=== PATIENT | female | born 1995 | race African-American/Black ===

== ENCOUNTER 2016-12-05 15:42 | Emergency (ER) | payer OTHER ==
[~2016-12-05] VITALS: Ht 167.6 cm; Wt 68.0 kg
[2016-12-05] MEDS ORDERED: Dexamethasone 4mg/ml vial IM ONE (16:45)
[2016-12-05] MEDS ORDERED: PREDNISONE20 MG ORAL (17:09)
[2016-12-05] MEDS ORDERED: ZITHROMAX250 MG ORAL (17:09)
[2016-12-05 17:30] VITALS: BP 126/76
[2016-12-05 17:31] VITALS: BP 123/76
--- NOTE | 2016-12-05 22:44 | Emergency Room Report ---
History of Present Illness General Chief Complaint: Sore Throat Source: Patient Present Illness HPI The patient is a 21-year-old female presenting for sore throat and cough with subjective fevers. The patient states that she had the same symptoms 1 month prior and was given a 7 day course of treatment with amoxicillin. The patient states that she completed the antibiotics and symptoms resigned in but have now returned. Pain is described as an 8/10 dull ache to the back of the throat and is worse with swallowing. No radiating pain. She denies any other symptoms including nausea, vomiting, shortness of breath, chest pain, headache, neck pain or stiffness, rash Allergies: Coded Allergies: No Known Allergies (Unverified , 12/05/16) Patient History Past Medical History: see triage record Pertinent Family History: none Last Menstrual Period: last month Now: No Reviewed Nursing Documentation: PMH: Agreed, PSxH: Agreed Nursing Documentation-PMH Past Medical History: No History, Except For Review of Systems All Other Systems: negative except mentioned in HPI Physical Exam Vital Signs Date Time Temp Pulse Resp B/P Pulse Ox O2 Delivery O2 Flow Rate FiO2 12/05/16 16:01 97.9 77 18 123/76 98 Room Air Sp02 EP Interpretation: reviewed, normal General Appearance: no apparent distress, alert, GCS 15, non-toxic Head: normocephalic, atraumatic Eyes: bilateral eye PERRL, bilateral eye normal inspection ENT: normal voice, TMs + canals normal, uvula midline, tonsillar swelling, pharyngeal erythema Neck: full range of motion, supple/symm/no masses Respiratory: chest non-tender, lungs clear, normal breath sounds, no wheezing, speaking full sentences Cardiovascular #1: regular rate, rhythm, no edema Neurologic: alert, oriented x3, responsive, motor strength/tone normal, sensory intact, speech normal Psychiatric: judgement/insight normal, memory normal, mood/affect normal, no suicidal/homicidal ideation Skin: normal color, no rash, warm/dry, well hydrated Lymphatic: adenopathy Medical Decision Making PA Attestation Dr. Manzo is my supervising physician. Patient management was discussed with my supervising physician Diagnostic Impression: Primary Impression: Pharyngitis, acute Qualified Codes: J02.9 - Acute pharyngitis, unspecified ER Course The patient is a 21-year-old female presenting for sore throat and cough with subjective fevers Differential diagnosis include but not limited to pharyngitis, sinusitis, AOM, bronchitis, PNA Physical exam: Vitals within normal limits. Afebrile. No apparent distress HEENT exam: There is bilateral tonsillar edema, erythema, and exudate. Uvula midline. Moist mucous membranes. There is bilateral cervical lymphadenopathy. Lungs are clear to auscultation bilaterally Skin is warm and dry. No rash The patient will be discharged home with a prescription for azithromycin and is given ER precautions. Patient will followup with primary care Last Vital Signs Date Time Temp Pulse Resp B/P Pulse Ox O2 Delivery O2 Flow Rate FiO2 12/05/16 17:31 97.9 18 123/76 98 Room Air 12/05/16 17:30 89 Status: improved Disposition: HOME, SELF-CARE Condition: Improved Scripts Prednisone* (PREDNISONE*) 20 Mg Tablet 40 MG ORAL DAILY, #8 TAB Prov: VALDEZ COLLINS 12/05/16 Azithromycin* (ZITHROMAX*) 250 Mg Tablet 250 MG ORAL DAILY, #6 TAB 0 Refills Take two tables once daily for 1 day, then one tablet once daily for 4 days. Prov: VALDEZ COLLINS. 12/05/16 Patient Instructions: Sore Throat Additional Instructions: I discussed my findings with the patient. All questions and concerns have been answered. Treatment and medication compliance have been addressed. I advised the patient that they need to follow up with PMD in 3-5 days. Return to ED if pain remains or worsens, cough worsens or remains, you notice blood in your sputum, you notice wheezing, you experience a fever, or if needed for any reason. Patient verbalized understanding of discharge instructions. VALDEZ COLLINS Dec 05, 2016 22:44
== END 2016-12-05 17:33 | disposition home or self-care (01) ==
LOC: EMR 16:12
DX: J02.9 Acute pharyngitis, unspecified (principal)
CPT/HCPCS: 96372; 99284; J1100

== ENCOUNTER 2017-08-30 11:08 | Emergency (ER) | payer MEDICAID, OTHER ==
[~2017-08-30] VITALS: Ht 167.6 cm; Wt 71.7 kg
[~2017-08-30 11:08] MED LIST: PREDNISONE20 MG ORAL; ZITHROMAX250 MG ORAL
[2017-08-30 11:12] VITALS: BP 106/71
[2017-08-30] MEDS ORDERED: AMOXIL250 MG ORAL (11:15)
[2017-08-30] MEDS ORDERED: NAPROXEN375 M2 ORAL (11:38)
[2017-08-30] MEDS ORDERED: TAMIFLU75 MG ORAL (11:38)
[2017-08-30] MEDS ORDERED: Naproxen 500mg tab ORAL ONE (12:00)
--- NOTE | 2017-08-30 12:05 | Diagnostic Imaging Report ---
Indication: Dyspnea Technique: XRAY Chest 1v Comparison: None Findings: Heart size and mediastinal contours are within normal limits given technique. There is no focal consolidation, pneumothorax or pleural effusion. Osseous structures demonstrate no acute abnormality. Impression: No radiographic evidence of acute cardiopulmonary disease.
[2017-08-30 12:11] VITALS: BP 106/71
--- NOTE | 2017-09-06 01:59 | Emergency Room Report ---
History of Present Illness General Chief Complaint: General Complaint Source: Patient Present Illness HPI Patient is a 22 year old female who presented after increased cough for two days. Patient reports recent illness which had resolved but recurred. She had finished a course of antibiotics. She reports a nonproductive cough. She denies chest discomfort. She states that she is not . She reports gradual onset of symptoms worse at night. She reports associated sore throat. Allergies: Coded Allergies: No Known Allergies (Unverified , 12/05/16) Patient History Past Medical History: see triage record Past Surgical History: none Last Menstrual Period: Current Now: No Reviewed Nursing Documentation: PMH: Agreed, PSxH: Agreed Review of Systems All Other Systems: negative except mentioned in HPI Physical Exam Vital Signs Date Time Temp Pulse Resp B/P (MAP) Pulse Ox O2 Delivery O2 Flow Rate FiO2 08/30/17 11:12 98.8 93 21 106/71 98 Room Air General Appearance: well appearing, no apparent distress, alert, GCS 15, non- toxic Head: normocephalic, atraumatic Eyes: bilateral eye PERRL ENT: hearing grossly normal, normal voice, uvula midline, moist mucus membranes Neck: full range of motion, supple Respiratory: no respiratory distress, speaking full sentences Cardiovascular #1: normal inspection, normal peripheral pulses, regular rate, rhythm, no edema Gastrointestinal: normal inspection Musculoskeletal: no calf tenderness Neurologic: normal inspection, alert, oriented x3, coagulating bath operator III-XII nml as tested, normal gait Psychiatric: normal inspection, mood/affect normal Skin: no rash, palpation normal Medical Decision Making Diagnostic Impression: Primary Impression: Pharyngitis, acute Additional Impression: Influenza-like illness ER Course Patient presented for cough. Differential diagnosis included but was not limited to pneumonia, bronchitis, influenza, among others. Chest xray was ordered due to persistent cough to rule out pneumonia. Patient was noted to have normal cardiac size. No infiltrate was noted. No evident effusion. Patient was given prescriptions for symptomatic treatment and probable influenza. Patient was advised to follow up with her primary care physician in 1-2 days and to return if worse. Chest X-Ray Diagnostic Results Chest X-Ray Diagnostic Results : Chest X-Ray Ordered: Yes Interpretation: no consolidation, no effusion, no acute cardiopulmonary disease Impression: No acute disease Last Vital Signs Date Time Temp Pulse Resp B/P (MAP) Pulse Ox O2 Delivery O2 Flow Rate FiO2 08/30/17 12:11 98.8 21 106/71 98 Room Air 08/30/17 11:12 93 Status: improved Disposition: HOME, SELF-CARE Condition: Stable Scripts Oseltamivir Phosphate (Tamiflu) 75 Mg Capsule 75 MG ORAL TWICE A DAY, #10 CAP Prov: Dudley Chapin 08/30/17 Naproxen* (NAPROXEN*) 375 Mg Tablet.dr 375 MG ORAL TWICE A DAY, #10 TAB Prov: Dudley Chapin 08/30/17 Referrals: [facility],REFERRING (PCP) Patient Instructions: Pharyngitis Dudley Chapin Sep 06, 2017 01:59
== END 2017-08-30 12:11 | disposition home or self-care (01) ==
LOC: EMR 12:00
DX: J02.9 Acute pharyngitis, unspecified (principal); J11.1 Influenza due to unidentified influenza virus with other respiratory manifestations
CPT/HCPCS: 71045; 81025; 99283

== ENCOUNTER 2018-06-14 10:13 | Emergency (ER) | payer MEDICAID ==
[~2018-06-14] VITALS: Ht 167.6 cm; Wt 72.6 kg
[~2018-06-14 10:13] MED LIST changes: +AMOXIL250 MG ORAL; +NAPROXEN375 M2 ORAL; +TAMIFLU75 MG ORAL
[2018-06-14 10:31] VITALS: BP 112/68
--- NOTE | 2018-06-14 10:41 | Emergency Room Report ---
History of Present Illness General Chief Complaint: Flu Like Symptoms Source: Medical Record Present Illness HPI Patient presents with a week of upper respiratory illness. Started with cough. Since yesterday the sore throat has been severe. She used her inhaler last night. The cough has not been productive. She complains of sore throat and headache rated 9/10. Sharp pain in throat, aching in head. No neck pain. Feverish, not documented. Her last period was 3 days ago and it was normal for her. No nausea vomiting diarrhea dysuria. She's had a rash on her forearm for approximately 4 months. She was seen by fur repair inspector in the creams that they gave weren't effective. It's not itching. There is some darkened areas. There is also one spot on her tummy. Allergies: Coded Allergies: No Known Allergies (Unverified , 12/05/16) Patient History Past Medical History: see triage record Social History: Denies: smoking - second hand Social History Narrative works at [employer] Last Menstrual Period: 06/07/18 Reviewed Nursing Documentation: PMH: Agreed; PSxH: Agreed Nursing Documentation-PMH Past Medical History: No History, Except For Hx Cardiac Problems: No - Strep throat Hx Asthma: No - Bronchitis Review of Systems All Other Systems: negative except mentioned in HPI Physical Exam Vital Signs Date Time Temp Pulse Resp B/P (MAP) Pulse Ox O2 Delivery O2 Flow Rate FiO2 06/14/18 10:17 98.4 83 18 112/68 97 Room Air Sp02 EP Interpretation: reviewed, normal General Appearance: well appearing, no apparent distress, GCS 15 Head: normocephalic, atraumatic ENT: moist mucus membranes, pharyngeal erythema, other - lymphatic inflammation Neck: full range of motion, supple Respiratory: lungs clear, normal breath sounds, no respiratory distress, speaking full sentences Cardiovascular #1: regular rate, rhythm Cardiovascular #2: 2+ radial (R) Gastrointestinal: normal inspection Genitourinary: no CVA tenderness Musculoskeletal: no calf tenderness Neurologic: alert, oriented x3, normal gait, grossly normal Psychiatric: mood/affect normal Skin: other - hyperpigmented rash on L forearm also punctate ruddy L abdomen, streak like quality with some possible scale Medical Decision Making Diagnostic Impression: Primary Impression: Pharyngitis, acute Qualified Codes: J02.9 - Acute pharyngitis, unspecified Additional Impression: Contact dermatitis Qualified Codes: L25.9 - Unspecified contact dermatitis, unspecified cause ER Course Patient presents with sore throat fever and wheezes. Differential includes viral upper respiratory infection, strep pharyngitis amongst others she also has a rash for 4 months. The rash differential is psoriasis versus contact dermatitis. Antibiotics prednisone and viscous lidocaine and Tylenol are indicated. No labs indicated. Patient much improved with lido and treatment. Patient stable for outpatient observation and treatment. Last Vital Signs Date Time Temp Pulse Resp B/P (MAP) Pulse Ox O2 Delivery O2 Flow Rate FiO2 06/14/18 11:20 98.4 83 18 112/68 97 Room Air Status: improved Disposition: HOME, SELF-CARE Condition: Improved Scripts Lidocaine HCl 2% Viscous (Lidocaine HCl 2% Viscous) 100 Ml Solution 10 ML ORAL QID, #60 ML Prov: Osvaldo Torres MD 06/14/18 Prednisone* (PREDNISONE*) 20 Mg Tablet 40 MG ORAL DAILY, #6 TAB Prov: Osvaldo Torres MD 06/14/18 Amoxicillin/Potassium Clav 500-125 Tablet* (AUGMENTIN 500-125 TABLET*) 1 Each Tablet 1 TAB ORAL THREE TIMES A DAY, #20 TAB Prov: Osvaldo Torres MD 06/14/18 Osvaldo Torres MD Jun 14, 2018 10:41
[2018-06-14] MEDS ORDERED: Lidocaine 2% Visc 15ml soln ORAL ONE (10:45)
[2018-06-14] MEDS ORDERED: PREDNISONE20 MG ORAL (10:47)
[2018-06-14] MEDS ORDERED: AUGMENTIN 500-1 EACH ORAL (10:47)
[2018-06-14] MEDS ORDERED: LIDOCAINE VISC100 ML ORAL (11:15)
[2018-06-14 11:20] VITALS: BP 112/68
== END 2018-06-14 11:22 | disposition home or self-care (01) ==
LOC: EMR 10:52
DX: J02.9 Acute pharyngitis, unspecified (principal); L25.9 Unspecified contact dermatitis, unspecified cause
CPT/HCPCS: 99282; J7512